=== PATIENT | male | born 2000 | race Caucasian/White ===

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

== ENCOUNTER 2020-02-28 01:37 | Outpatient (CLI) | payer OTHER, SELFPAY ==
[2020-02-28 19:05] LABS: SARS-CoV-2 RNA PCR Negative
== END 2020-02-28 01:38 | disposition home or self-care (01) ==
LOC: ANHCOVIDDT 01:37
PROVIDERS: Visit Provider Otolaryngology
DX: Z01.812 Encounter for preprocedural laboratory examination (principal); Z20.828 Contact with and (suspected) exposure to other viral communicable diseases
CPT/HCPCS: 87635; C9803; U0003

== ENCOUNTER 2020-03-01 01:06 | Day surgery (SDC) | payer OTHER, SELFPAY ==
[2020-02-20 15:16] VITALS: BMI 23.7
--- NOTE | 2020-02-29 06:44 | PM.HPGS ---
History of Present Illness History of Present Illness Consent: Risks, benefits, and alternatives have been discussed and questions answered. Patient agrees to proceed with procedure. Chief complaint: hypertrophic tonsils Narrative: Ryan Horvath is a 19 year old male with recurring episodes of tonsillitis treated with various courses of antibiotics admitted for tonsillectomy [facility] Social History Social History (Updated 02/07/20 @ 12:03 by Malaika Rivera) Smoking status: Never smoker Gender identity (if verbalized by the patient): Male Meds Home Medications and Allergies Home Medications Medication Instructions Recorded Confirmed Type ibuprofen 800 mg PO Q6H PRN 02/20/20 02/20/20 History Allergies Allergy/AdvReac Type Severity Reaction Status Date / Time No Known Allergies Allergy Mild Verified 02/20/20 15:16 Assessment and Plan Additional Plan plan is a tonsillectomy
--- NOTE | 2020-02-29 10:29 | P.PNAN_ITS ---
Anes - Initial Pre Proc Eval Procedure: Operation Date: 03/01/20 07:45 Proposed Procedures p Tonsillectomy - Otto Monique MD Date/Time: 02/29/20 10:29 Surgeon: Otto Monique MD Pre Op Diagnosis: hypertrophic tonsils Patient Data Age: 19 Gender: M Height: 1.85 m Weight: 81.65 kg Allergies Allergy/AdvReac Type Severity Reaction Status Date / Time No Known Allergies Allergy Mild Verified 02/20/20 15:16 Home Medications Medication Instructions Recorded Confirmed Type ibuprofen 800 mg PO Q6H PRN 02/20/20 02/20/20 History Patient hx anesthesia problems: none Family hx anesthesia problems: none [facility] Social History Social History (Updated 02/07/20 @ 12:03 by Malaika Rivera) Smoking status: Never smoker Gender identity (if verbalized by the patient): Male Anes - Eval Final PreProcedure Day of Procedure 02/29/20 10:29 Patient weight: normal Heart: regular rate and rhythm Lungs: clear to auscultation and normal air movement Airway: Mallampati scale class II Neurological: alert and oriented Last oral intake: >/= 8 hours ASA classification: I Emergent: no Anesthetic plan: proceed Anesthesia type and monitoring: general ETT Informed Consent: The patient's anesthetic plan and its attendant risks and benefits were discussed with the patient/family/POA. Questions were solicited and answers provided to the satisfaction of the patient/family/POA.
[2020-03-01] VITALS (8 sets, daily range): BP systolic 103–156; BP diastolic 56–86; PULSE 67–96; RESP 10–20; TEMP 36.2; O2SAT 98–100
--- NOTE | 2020-03-01 06:08 | WPDHPUPDATE1 ---
History and Physical Update Update Date/Time: 03/01/20 06:08 History and Physical has been reviewed, including an updated exam of the patient. There are NO changes in the patient's condition. Risks, benefits, and alternatives have been discussed and questions answered. Patient agrees to proceed with procedure.
--- NOTE | 2020-03-01 06:09 | PM.HPGS ---
History of Present Illness History of Present Illness Consent: Risks, benefits, and alternatives have been discussed and questions answered. Patient agrees to proceed with procedure. Chief complaint: hypertrophic tonsils Narrative: Ryan Horvath is a 19 year old male recurrent episodes of tonsillitis treated years post antibiotic [facility] Social History Social History (Updated 02/07/20 @ 12:03 by Malaika Rivera) Smoking status: Never smoker Gender identity (if verbalized by the patient): Male Meds Home Medications and Allergies Home Medications Medication Instructions Recorded Confirmed Type ibuprofen 800 mg PO Q6H PRN 02/20/20 02/20/20 History Allergies Allergy/AdvReac Type Severity Reaction Status Date / Time No Known Allergies Allergy Mild Verified 02/20/20 15:16 Assessment and Plan Additional Plan [place] tonsillectomy
--- NOTE | 2020-03-01 06:11 | PM.HPGS ---
History of Present Illness History of Present Illness Consent: Risks, benefits, and alternatives have been discussed and questions answered. Patient agrees to proceed with procedure. Chief complaint: hypertrophic tonsils Narrative: Ryan Horvath is a 19 year old male Review of Systems Review of Systems: All systems reviewed & are unremarkable except as noted in HPI and below [facility] Social History Social History (Updated 02/07/20 @ 12:03 by Malaika Rivera) Smoking status: Never smoker Gender identity (if verbalized by the patient): Male Meds Home Medications and Allergies Home Medications Medication Instructions Recorded Confirmed Type ibuprofen 800 mg PO Q6H PRN 02/20/20 02/20/20 History Allergies Allergy/AdvReac Type Severity Reaction Status Date / Time No Known Allergies Allergy Mild Verified 02/20/20 15:16 Assessment and Plan Additional Plan [place] is a tonsillectomy
--- NOTE | 2020-03-01 06:20 | P.HP_ITS ---
History of Present Illness History of Present Illness Consent: Risks, benefits, and alternatives have been discussed and questions answered. Patient agrees to proceed with procedure. Chief complaint: hypertrophic tonsils Narrative: Ryan Horvath is a 19 year old male Review of Systems Review of Systems: All systems reviewed & are unremarkable except as noted in HPI and below [facility] Social History Social History (Updated 02/07/20 @ 12:03 by Malaika Rivera) Smoking status: Never smoker Gender identity (if verbalized by the patient): Male Meds Home Medications and Allergies Home Medications Medication Instructions Recorded Confirmed Type ibuprofen 800 mg PO Q6H PRN 02/20/20 02/20/20 History Allergies Allergy/AdvReac Type Severity Reaction Status Date / Time No Known Allergies Allergy Mild Verified 02/20/20 15:16
[2020-03-01] MEDS: ACETAMINOPHEN 500 MG TABLET 1000 MG PO (06:52)
[2020-03-01] MEDS: LACTATED RINGERS 1,000 ML 30 ML IV CONT ×2 (07:00→08:26)
--- NOTE | 2020-03-01 08:16 | PM.PROC ---
Procedure Note - Detailed Date of procedure: 03/01/20 Pre-op diagnosis: hypertrophic tonsils Chronic tonsillitis Post-op diagnosis: same Procedure performed: Tonsillectomy TONSILLECTOMY/ADENOIDECTOMY SURGERY POSTOPERATIVE DISCHARGE INSTRUCTIONS DR. ZABALA [facility] This is an information sheet to tell you some things to expect and some things not to expect when you leave the hospital after having Tonsillectomy/Adenoidectomy surgery. Please follow any specific instructions Dr. Zabala has given you. 1. Diet You have received IV fluids during hospitalization, which will carry you through the next 24 to 48 hours. It should be no cause for alarm if you are not taking much liquid orally. Encourage yourself to drink liquids, but please avoid acidic liquids and hot liquids/food. Products such as orange juice or lemonade will sting and burn. Popsicles and cool liquids maybe better tolerated than thick liquids such as ice cream. Dairy product will have a tendency to make secretions thick. It is much more important that your child drink fluids than eat food. Do not be alarmed if you eat very little over the next several days. As long as you are drinking liquids, able to produce tears when crying and urinating, then adequate hydration is being maintained. Suggested foods are sherbet, Jell-O, broth, pudding, pureed vegetables, mashed potatoes..etc. No soda, potato chips, or any type of food that may scratch the throat is permitted. Do not expect to eat solid food for 7-8 days. As you begin to feel better, you may advance your diet as tolerated. 2. Nausea Nausea and vomiting can occur during the first evening as a result of having a general anesthetic. Giving pain medication or antibiotics on an empty stomach can make it worse. If you are not able to keep liquids down do not force them. Stop trying the liquids and try again in the morning. If you experience nausea and vomiting at that time, please call Dr. Zabala. 3. Pain Typically patients report that the pain builds up for the first few days and is the worst around the 5th day following tonsillectomy. The amount of discomfort usually lessens, then may increase again around day 7-10 after surgery, as some of the whitish tissue covering the tonsillectomy site falls off. After this, there is generally steady improvement with less discomfort. Complete healing of the operative area generally takes several weeks. An ice collar or cold compress to the neck are soothing and may be desired. It is very common for the ears to hurt during the healing process. Ear pain, at times, may be severe. This ear pain is actually referred pain from the healing throat and is general not a result of an ear infection. If there is no drainage from the ear, there is no cause for concern. There maybe some tongue or jaw pain experienced for a couple weeks. This is caused from the position of the mouth during surgery. 4. Medication For pain relief, please take pain medication as prescribed. If nausea should occur due to pain medication, you may take plain Tylenol elixir. Please stay away from aspirin and aspirin containing products for 2 weeks. 5. Appearance The throat will have a yellow to thrasher-white appearance for 10-14 days. This is normal and should not cause alarm. 6. Bleeding Bleeding is a rare problem that can occur after tonsil and /or adenoid surgery. The chances of this happening are greatest during the first several hours after surgery and then between the fourth to tenth day afterwards. The normal appearance of the yellow to thrasher-white appearance is the area where the tonsils were removed. It is normal for this ma
[2020-03-01] MEDS: fentaNYL CITRATE INJ (*CRX) 100 MCG/2 ML VIAL 25 MCG IV PUSH (09:02)
--- NOTE | 2020-03-01 09:08 | SUR.PHASEI ---
PT HAS SLIGHT NOSE BLEED FROM LT NARE. PT AWAKE AND ALERT.
--- NOTE | 2020-03-01 09:13 | SUR.PHASEI ---
PT AWAKE AND ALERT. TALKATIVE. MEET DISCHARGE CRITERIA
[2020-03-01] MEDS: ONDANSETRON INJ 4 MG/2 ML VIAL IV PUSH (09:54)
--- NOTE | 2020-03-20 05:44 | PM.PROC ---
Procedure Note - Detailed Date of procedure: 03/20/20 Pre-op diagnosis: hypertrophic tonsils Post-op diagnosis: same Procedure performed: Tonsillectomy Description of procedure: Patient was prepped and draped in usual fashion after induction of anesthesia. The McIvor mouth gag was inserted. The tonsils were removed dissection technique hemostasis was obtained electrocautery. The mouth was inspected for bleeding. When stablized patient was awaken and brought to the recovery room in good condition. Anesthesia: GLMA Surgeon: Otto Monique MD Estimated blood loss (mL): 15 Drains: No Packing: No Pathology: none sent Complications: No immediate complications Condition: stable Disposition: PACU
== END 2020-03-01 10:19 | disposition home or self-care (01) ==
PROVIDERS: Visit Provider Otolaryngology
PROC: (CPT 42826; principal; 2020-03-01 07:45)
DX: J35.1 Hypertrophy of tonsils (principal)
CPT/HCPCS: 42826; 88302; A9270; J0330; J1100; J2250; J2405; J2704; J3010; J7120